=== PATIENT | female | born 1960 | race Caucasian/White ===

== ENCOUNTER 2018-09-18 18:08 | Emergency (ER) | payer OTHER ==
[2018-09-18] MEDS ORDERED: Amoxicillin/Clavulanate TAB* 875 MG PO ONE ×2 (18:34→20:15)
[2018-09-18] MEDS ORDERED: oxyCODONE TAB* 5 MG TAB PO ONE (19:09)
[2018-09-18] MEDS ORDERED: Lidocaine 2% 10 ML* VIAL INJ ONE (19:28)
[2018-09-18] MEDS ORDERED: Lidocaine 2% PF * 5 ML VIAL INJ ONE (20:00)
--- NOTE | 2018-09-18 20:17 | ED ---
Bite Injury/Animal - HPI Summary HPI Summary: Patient complains of dog bite to right forearm with laceration today. Dog belongs to patient, is up-to-date on vaccinations. Patient tetanus status unknown. Denies any other pain injuries or symptoms. Medical history is none. - History of Current Complaint Chief Complaint: EDAnimalBite Stated Complaint: "DOG BITE PER EMS" Time Seen by Provider: 09/18/18 18:34 Hx Obtained From: Patient Onset of Injury: Happened hours ago Type of Bite: Pet Has Animal Been Immunized?: Yes Severity Initially: Moderate Severity Currently: Moderate Pain Intensity: 5 Pain Scale Used: 0-10 Numeric Character: Abrasion/Laceration Aggravating Factor(s): Nothing Alleviating Factor(s): Rest Associated Signs And Symptoms: Positive: Negative Animal Available for Observation: Yes - Allergies/Home Medications Allergies/Adverse Reactions: Allergies Allergy/AdvReac Type Severity Reaction Status Date / Time No Known Allergies Allergy Verified 06/06/13 16:12 PMH/Surg Hx/FS Hx/Imm Hx Endocrine/Hematology History: Denies: Hx Anticoagulant Therapy Cardiovascular History: Denies: Hx Pacemaker/ICD History: Denies: Hx Dialysis Sensory History: Denies: Hx Eye Prosthesis Opthamlomology History: Denies: Hx Legally Blind EENT History: Denies: Hx Deafness Neurological History: Denies: Hx Dementia Psychiatric History: Denies: Hx Autism Infectious Disease History: No Infectious Disease History: Denies: Traveled Outside the [place] in Last 30 Days - Family History Known Family History: Positive: Non-Contributory - Social History Alcohol Use: Occasionally Substance Use Type: Reports: None Smoking Status (MU): Heavy Every Day Tobacco Smoker Review of Systems Constitutional: Negative Eyes: Negative ENT: Negative Cardiovascular: Negative Respiratory: Negative Gastrointestinal: Negative Genitourinary: Negative Musculoskeletal: Negative Skin: Other Neurological: Negative Psychological: Normal All Other Systems Reviewed And Are Negative: Yes Physical Exam - Summary Physical Exam Summary: Laceration volar surface of right forearm. PMS intact distally. 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 Patient able to flex and extend fingers and wrist. Triage Information Reviewed: Yes Vital Signs On Initial Exam: Initial Vitals Temp Pulse Resp BP Pulse Ox 98.3 F 94 18 148/109 95 09/18/18 18:19 09/18/18 18:19 09/18/18 18:19 09/18/18 18:19 09/18/18 18:19 Vital Signs Reviewed: Yes Appearance: Positive: Well-Appearing Skin: Positive: Warm Head/Face: Positive: Normal Head/Face Inspection Eyes: Positive: Normal Neck: Positive: Supple Respiratory/Lung Sounds: Positive: Clear to Auscultation Cardiovascular: Positive: Normal Abdomen Description: Positive: Nontender Musculoskeletal: Positive: Normal Neurological: Positive: Normal Psychiatric: Positive: Normal AVPU Assessment: Alert - [place] Coma Scale Best Eye Response: 4 - Spontaneous Best Motor Response: 6 - Obeys Commands Best Verbal Response: 5 - Oriented Coma Scale Total: 15 Procedures - Laceration/Wound Repair 1 Location: upper extremity Description: Linear Anesthesia: Local, 2.0% Length, Depth and Shape: 9cm x 1.5cm Betadine Prep?: Yes Irrigated w/ Saline (ccs): 1,000 Laceration/Wound Explored: clean Debridement: minimal Number of Sutures: 11 - 4.0 ethilon Layer Closure?: No Sterile Dressing Applied?: No Diagnostics - Vital Signs Vital Signs Temp Pulse Resp BP Pulse Ox 09/18/18 18:19 98.3 F 94 18 148/109 95 - Laboratory Lab Statement: Any lab studies that have been ordered have been reviewed, and results considered in the medical decision making process. Bite Injury Course/Dx - Course Course Of Treatment: Patient complains of dog bite to right forearm with laceration today. Dog belongs to patient, is up-to-date on vaccinations. Patient tetanus status unknown. Denies any other pain injuries or symptoms. Medical history is none. Physical exam:Laceration volar surface of right forearm. PMS intact distally. 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 Patient able to flex and extend fingers and wrist. Vital signs within normal limits. Wound cleaned and repaired. Rx for Augmentin. 11 - Diagnoses Provider Diagnosis: Dog bite, Laceration Discharge - Sign-Out/Discharge Documenting (check all that apply): Patient Departure Patient Received Moderate/Deep Sedation with Procedure: No - Discharge Plan Condition: Stable Disposition: HOME Prescriptions: Amoxicillin/Clavulanate TAB* [Augmentin TAB 875*] 875 mg PO BID #20 tab Oxycodone HCl 5 mg PO TID 2 Days #4 tablet MDD 3-4 tabs Patient Education Materials: Animal Bite (ED), Laceration (ED) Referrals: [facility] [Outside] No Primary Care Phys,NOPCP [Primary Care Provider] - Additional Instructions: Take antibiotic as directed. Keep wound clean and dry. Keep the wound protected when not washing. Sutures out in 10 days. May wash with warm running water and soap starting tomorrow. Do not submerge underwater for 5 days. Return to the ED for any new or worsening symptoms. - Billing Disposition and Condition Condition: STABLE Disposition: Home
[2018-09-18 21:04] VITALS: BP 202/100
== END 2018-09-18 21:03 | disposition home or self-care (01) ==
LOC: ED 18:08
DX: S51.811A Laceration without foreign body of right forearm, initial encounter (principal); W54.0XXA Bitten by dog, initial encounter; Y92.9 Unspecified place or not applicable; F17.200 Nicotine dependence, unspecified, uncomplicated
CPT/HCPCS: 12004; 99282; A9270-GY